=== PATIENT | female | born 1965 | race Caucasian/White ===

== ENCOUNTER 2019-08-07 11:52 | Day surgery (SDC) | payer BC ==
[~2019-08-07 11:52] MED LIST: Lactated Ringers 1,000 ML IV SCH
--- NOTE | 2019-08-07 12:19 | PCM.PREANE ---
Preanesthetic Assessment - Anesthesia/Transfusion/Family Hx Anesthesia History: Prior Anesthesia Without Reaction Family History of Anesthesia Reaction: No Transfusion History: No Prior Transfusion(s) Intubation History: Unknown - Review of Systems General: No Symptoms Pulmonary: No Symptoms Cardiovascular: No Symptoms Gastrointestinal: No Symptoms, Other (screening colonoscopy) Neurological: No Symptoms Other: Reports: None - Physical Assessment Vital Signs: Last Vital Signs Temp 36.5 C 08/07/19 12:00 Pulse 92 08/07/19 12:00 Resp 16 08/07/19 12:00 BP 125/85 08/07/19 12:00 Pulse Ox 95 08/07/19 12:00 Height: 5 ft 9 in Weight: 112.945 kg ASA Class: 3 Mental Status: Alert & Oriented x3 Airway Class: Mallampati = 2 Dentition: Reports: Normal Dentition Thyro-Mental Finger Breadths: 3 Mouth Opening Finger Breadths: 2 (small mouth) ROM/Head Extension: Full Lungs: Clear to Auscultation, Normal Respiratory Effort Cardiovascular: Regular Rate, Regular Rhythm - Allergies Allergies/Adverse Reactions: Allergies Allergy/AdvReac Type Severity Reaction Status Date / Time No Known Allergies Allergy Verified 08/02/19 08:10 - Blood Blood Available: No - Anesthesia Plan Pre-Op Medication Ordered: None - Acknowledgements Anesthesia Type Planned: MAC Pt an Appropriate Candidate for the Planned Anesthesia: Yes Alternatives and Risks of Anesthesia Discussed w Pt/Guardian: Yes Pt/Guardian Understands and Agrees with Anesthesia Plan: Yes PreAnesthesia Questionnaire HEENT History: Reports: Retinal Detachment Other HEENT History: contact in left eye, 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 Symptom is hearing loss - left ear.) Psychiatric History: Reports: None Endocrine/Metabolic History: Reports: Hypothyroidism, Obesity/BMI 30+, Other ( See Below) Other Endocrine/Metabolic History: "prediabetic" Hematologic History: Reports: None Immunologic History: Reports: None Oncologic (Cancer) History: Reports: None Dermatologic History: Reports: None - Past Surgical History Head Surgeries/Procedures: Reports: None HEENT Surgical History: Reports: Cataract Surgery, Naso-Sinus Surgery, Other ( See Below) Other HEENT Surgeries/Procedures: spinal blood patch due to intracranial hypotention, surgery for detached retina Cardiovascular Surgical History: Reports: None Respiratory Surgical History: Reports: None GI Surgical History: Reports: None Female Surgical History: Reports: Other (See Below) Other Female Surgeries/Procedures: repair of perineal tear after delivery Endocrine Surgical History: Reports: None Neurological Surgical History: Reports: Other (See Below) Other Neurological Surgeries/Procedures: spinal blood patch for intracranial hypotention Musculoskeletal Surgical History: Reports: None Oncologic Surgical History: Reports: None Dermatological Surgical History: Reports: None - SUBSTANCE USE Smoking Status *Q: Never Smoker Recreational Drug Use History: No - HOME MEDS Home Medications: Home Meds Cholecalciferol (Vitamin D3) [Vitamin D3] 25 mcg PO DAILY 08/02/19 [History] Fish Oil/[place]-3 Fatty Acids [Fish Oil 1,000 MG] 1,000 mg PO DAILY 08/02/19 [ History] Levothyroxine 150 mg PO DAILY 08/02/19 [History] Losartan Potassium 100 mg PO BEDTIME 08/02/19 [History] Multivit/Folic Acid/Vit K1 [One-A-Day Women's 50 Plus Tab] 1 tab PO DAILY [History] metFORMIN HCl [Metformin HCl ER] 500 mg PO ACDINNER 08/02/19 [History] - CURRENT (IN HOUSE) MEDS Current Meds: Current Medications Lactated Ringer's (Ringers, Lactated) 1,000 mls @ 125 mls/hr IV ASDIRECTED [facility]
[2019-08-07] MEDS ORDERED: Propofol 200 MG/20 ML SDV ONE ×2 (12:36→13:43)
[2019-08-07] MEDS ORDERED: Midazolam 1 MG/ML 2 ML SDV ONE (12:36)
--- NOTE | 2019-08-07 14:05 | PCM.OPNOTE ---
- General Post-Op/Procedure Note Date of Surgery/Procedure: 08/07/19 Operative Procedure(s): Colonoscopy with snare, ascending colon polypectomy and cold sigmoid colon polypectomy Pre Op Diagnosis: Desire for colorectal cancer screening. Post-Op Diagnosis: Ascending colon and sigmoid polyps. Sigmoid diverticulosis. Anesthesia Technique: MAC (ASA II) Primary Surgeon: Asher Contreras Condition: Good Free Text/Narrative:: DICTATION [id number] CPT CODE 60607/[id number]
[2019-08-07] MEDS ORDERED: Lactated Ringers 1,000 ML IV SCH (14:15)
--- NOTE | 2019-08-07 14:19 | PCM.POSTAN ---
POST ANESTHESIA ASSESSMENT - MENTAL STATUS Mental Status: Alert, Oriented - VITAL SIGNS Vital Signs: Last Vital Signs Temp 36.4 C 08/07/19 14:05 Pulse 79 08/07/19 14:15 Resp 10 L 08/07/19 14:15 BP 118/58 L 08/07/19 14:15 Pulse Ox 99 08/07/19 14:15 - RESPIRATORY Respiratory Status: Respiratory Rate WNL, Airway Patent, O2 Saturation Stable - CARDIOVASCULAR CV Status: Pulse Rate WNL, Blood Pressure Stable - GASTROINTESTINAL GI Status: No Symptoms - PAIN Pain Score: 0 - POST OP HYDRATION Hydration Status: Adequate & Stable - OBSERVATIONS Free Text/Narrative:: No anesthesia problems
--- NOTE | 2019-08-07 14:36 | PCM48HPAN ---
Post Anesthesia Note - EVALUATION WITHIN 48HRS OF ANESTHETIC Vital Signs in Normal Range: Yes Patient Participated in Evaluation: Yes Respiratory Function Stable: Yes Airway Patent: Yes Cardiovascular Function Stable: Yes Hydration Status Stable: Yes Pain Control Satisfactory: Yes Nausea and Vomiting Control Satisfactory: Yes Mental Status Recovered: Yes Vital Signs: Last Vital Signs Temp 36.2 C 08/07/19 14:20 Pulse 77 08/07/19 14:20 Resp 14 08/07/19 14:20 BP 122/72 08/07/19 14:20 Pulse Ox 98 08/07/19 14:20 - COMMENTS/OBSERVATIONS Free Text/Narrative:: No anesthesia problems.
--- NOTE | 2019-08-07 17:26 | OR ---
SURGEON: Asher Contreras M.D. DATE OF PROCEDURE: 08/07/2019 OPERATION PERFORMED: Colonoscopy with snare ascending colon polypectomy and cold sigmoid colon polypectomy. PRIMARY SURGEON: Asher Contreras MD ANESTHESIA: MAC. ASA CLASSIFICATION: II. PREOPERATIVE DIAGNOSIS: Desire for colorectal cancer screening. POSTOPERATIVE DIAGNOSES: 1. Ascending colon polyp. 2. Sigmoid colon polyp. 3. Sigmoid diverticulosis. DESCRIPTION OF PROCEDURE: The patient was taken to the endoscopy room and positioned on the endoscopy table in the left lateral decubitus position. Time-out was called for appropriate identification of the patient and procedure. Monitored anesthesia care was provided. The colonoscope was inserted into the rectum and advanced with moderate difficulty to the cecum where the colonoscope was retroflexed to visualize the ascending colon from below. The colonoscope was then straightened and slowly withdrawn. The cecum was identified by internal landmarks and external pressure. One polyp was encountered in the ascending colon and this was removed with the snare electrocautery. The polyp was ensnared and then using a combination of coagulating current and cutting current the polyp was removed and retrieved. It was necessary to remove the colonoscope to recover the polyp. Once that was done and the polyp recovered, the colonoscope was reinserted to the polypectomy site and examination again carried out in an antegrade fashion. The polypectomy site was dry. The remainder of the ascending colon, hepatic flexure, transverse colon, splenic flexure, and descending colon showed no other tumors, polyps, diverticula, or angiodysplastic changes. One polyp was encountered in the sigmoid colon and removed with multiple bites of the cold biopsy forceps. The patient also demonstrated moderately severe sigmoid diverticulosis. No stricture, spasm, or bleeding was noted. The colonoscope was then withdrawn to the rectum and retroflexed to visualize the anal orifice from above. Again, no tumors or polyps were encountered and there were no acute hemorrhoidal changes. The colonoscope was then straightened, the rectum aspirated, and the colonoscope removed. The patient tolerated the procedure well and was taken to recovery room in satisfactory condition. CHRISSIE / JULIANO /[id number]
== END 2019-08-07 14:48 | disposition home or self-care (01) ==
LOC: MW.SDS 11:52
PROVIDERS: ATTEND Surgery
DX: Z12.11 Encounter for screening for malignant neoplasm of colon (principal); Z12.12 Encounter for screening for malignant neoplasm of rectum; D12.2 Benign neoplasm of ascending colon; D12.5 Benign neoplasm of sigmoid colon; K57.30 Diverticulosis of large intestine without perforation or abscess without bleeding; E03.9 Hypothyroidism, unspecified; I10 Essential (primary) hypertension; R73.09 Other abnormal glucose; E66.9 Obesity, unspecified; Z79.890 Hormone replacement therapy; Z79.899 Other long term (current) drug therapy; Z68.36 Body mass index [BMI] 36.0-36.9, adult
CPT/HCPCS: 45380; 45385; 82962; J2250; J2704; J7120; 00812

== ENCOUNTER 2020-08-31 07:30 | Emergency (ER) | payer BC ==
--- NOTE | 2020-08-31 08:18 | EDM.PDOC ---
ED HPI GENERAL MEDICAL PROBLEM - General Chief Complaint: Skin Complaint Stated Complaint: rash on arms Time Seen by Provider: 08/31/20 07:35 Source of Information: Reports: Patient History Limitations: Reports: No Limitations - History of Present Illness INITIAL COMMENTS - FREE TEXT/NARRATIVE: Patient is a 55-year-old female presents today for redness under her armpits. Patient states that she thought she may have had a yeast infection and she used a vaginocele wipe on her arm and now has some redness there with itchiness. Patient denies any rash or hives any other body parts no difficulty swallowing or breathing. Patient has no other medical complaints. 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 (see below) BUE Pain Score (Numeric/FACES): 5 - Related Data Allergies Allergy/AdvReac Type Severity Reaction Status Date / Time No Known Allergies Allergy Verified 08/31/20 07:43 Home Meds: Home Meds Cholecalciferol (Vitamin D3) [Vitamin D3] 25 mcg PO DAILY 08/02/19 [History] Fish Oil/[place]-3 Fatty Acids [Fish Oil 1,000 MG] 1,000 mg PO DAILY 08/02/19 [History] Levothyroxine 150 mg PO DAILY 08/02/19 [History] Losartan Potassium 100 mg PO BEDTIME 08/02/19 [History] Multivit/Folic Acid/Vit K1 [One-A-Day Women's 50 Plus Tab] 1 tab PO DAILY [History] metFORMIN HCl [Metformin HCl ER] 500 mg PO ACDINNER 08/02/19 [History] Past Medical History HEENT History: Reports: Retinal Detachment Other HEENT History: contact in left eye, 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, hearing aid Cardiovascular History: Reports: Hypertension Respiratory History: Reports: None Gastrointestinal History: Reports: None Genitourinary History: Reports: None 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: Musculoskeletal History: Reports: None Neurological History: Reports: None Psychiatric History: Reports: None Endocrine/Metabolic History: Reports: Hypothyroidism, Obesity/BMI 30+, Other (See Below) Other Endocrine/Metabolic History: "prediabetic" Hematologic History: Reports: None Immunologic History: Reports: None Oncologic (Cancer) History: Reports: None Dermatologic History: Reports: None - Infectious Disease History Infectious Disease History: Reports: Chicken Pox - Past Surgical History Head Surgeries/Procedures: Reports: None HEENT Surgical History: Reports: Cataract Surgery, Naso-Sinus Surgery, Other (See Below) Other HEENT Surgeries/Procedures: spinal blood patch due to intracranial hypotention, surgery for detached retina Cardiovascular Surgical History: Reports: None Respiratory Surgical History: Reports: None GI Surgical History: Reports: None Female Surgical History: Reports: Other (See Below) Other Female Surgeries/Procedures: repair of perineal tear after delivery Endocrine Surgical History: Reports: None Neurological Surgical History: Reports: Other (See Below) Other Neurological Surgeries/Procedures: spinal blood patch for intracranial hypotention Musculoskeletal Surgical History: Reports: None Oncologic Surgical History: Reports: None Dermatological Surgical History: Reports: None Social & Family History - Recreational Drug Use Recreational Drug Use: No ED ROS GENERAL - Review of Systems Review Of Systems: See Below Constitutional: Reports: No Symptoms HEENT: Reports: No Symptoms Respiratory: Reports: No Symptoms Cardiovascular: Reports: No Symptoms Endocrine: Reports: No Symptoms GI/Abdominal: Reports: No Symptoms : Reports: No Symptoms Musculoskeletal: Reports: No Symptoms Skin: Reports: Rash Neurological: Reports: No Symptoms Psychiatric: Reports: No Symptoms Hematologic/Lymphatic: Reports: No Symptoms Immunologic: Reports: No Symptoms ED EXAM, SKIN/RASH Exam: See Below Exam Limited By: No Limitations General Appearance: Alert, WD/WN, No Apparent Distress Eye Exam: Bilateral Eye: EOMI, PERRL Respiratory/Chest: No Respiratory Distress Cardiovascular: Normal Peripheral Pulses, Regular Rate, Rhythm GI/Abdominal: Normal Bowel Sounds, Soft, Non-Tender Neurological: Alert, Oriented Skin: Rash (Redness under both underarms.) Location, Skin: Axillary Course - Vital Signs Last Recorded V/S: Last Vital Signs Temp 96.7 F L 08/31/20 07:43 Pulse 91 08/31/20 07:43 Resp 18 08/31/20 07:43 BP 147/90 H 08/31/20 07:43 Pulse Ox 95 08/31/20 07:43 Departure - Departure Time of Disposition: 08:19 Disposition: Home, Self-Care 01 Condition: Good Clinical Impression: Contact dermatitis - Discharge Information *PRESCRIPTION DRUG MONITORING PROGRAM REVIEWED*: Not Applicable *COPY OF PRESCRIPTION DRUG MONITORING REPORT IN PATIENT RJ: Not Applicable Instructions: Contact Dermatitis, [id number] Referrals: Reena Chan NP [Primary Care Provider] - Additional Instructions: The following information is given to patients seen in the emergency department who are being discharged to home. This information is to outline your options for follow-up care. We provide all patients seen in our emergency department with a follow-up referral. The need for follow-up, as well as the timing and circumstances, are variable depending upon the specifics of your emergency department visit. If you don't have a primary care physician on staff, we will provide you with a referral. We always advise you to contact your personal physician following an emergency department visit to inform them of the circumstance of the visit and for follow-up with them and/or the need for any referrals to a consulting specialist. The emergency department will also refer you to a specialist when appropriate. This referral assures that you have the opportunity for follow-up care with a specialist. All of these measure are taken in an effort to provide you with optimal care, which includes your follow-up. Under all circumstances we always encourage you to contact your private physician who remains a resource for coordinating your care. When calling for follow-up care, please make the office aware that this follow-up is from your recent emergency room visit. If for any reason you are refused follow-up, please contact the [facility] Emergency Department at and asked to speak to the emergency department charge nurse. Please follow up with your primary care physician. If you do not have a primary care physician, see below: [facility] [address] [place] [id number] [facility] [address] [place] [id number] You were seen today for a rash under both your armpits was likely a contact dermatitis from the wipes use. Recommend you use Benadryl for the itchiness and we can apply topical cortisone cream for the next 3 days that can help with this redness. If you have any increased redness or spreading of pain please return t o the ED. Sepsis Event Note (ED) - Evaluation Sepsis Screening Result: No Definite Risk - Focused Exam Vital Signs: Vital Signs Temp Pulse Resp BP Pulse Ox 08/31/20 07:43 96.7 F L 91 18 147/90 H 95 - Assessment/Plan Plan: Patient is a 55-year-old female presents today for rashes under both axilla. This is likely a contact dermatitis from the Vagisil wipes that she use it is well demarcated. Patient will use Benadryl for the itchiness and will be given some topical steroids.
== END 2020-08-31 08:37 | disposition home or self-care (01) ==
LOC: MW.ED 07:30
DX: L25.9 Unspecified contact dermatitis, unspecified cause (principal); I10 Essential (primary) hypertension; E03.9 Hypothyroidism, unspecified; E66.9 Obesity, unspecified; Z68.35 Body mass index [BMI] 35.0-35.9, adult; Z79.899 Other long term (current) drug therapy
CPT/HCPCS: 99282

== ENCOUNTER 2023-03-11 17:03 | Emergency (ER) | payer BC ==
[2023-03-11] MEDS ORDERED: Sodium Chloride 0.9% 10 ML Syringe FLUSH PRN (18:06)
[2023-03-11] MEDS ORDERED: Sodium Chloride 0.9% 2.5 ML Syringe FLUSH PRN (18:06)
[2023-03-11] MEDS ORDERED: Sodium Chloride 0.9% 1,000 ML IV STA (18:07)
[2023-03-11] MEDS ORDERED: Meclizine 25 MG Tab PO STA (18:07)
[2023-03-11 18:28] LABS: BASOPHILS ABSOLUTE AUTO 0.02 K/uL (0.00-0.20); BASOPHILS PERCENT AUTO 0.4 % (0.0-1.0); EOSINOPHILS ABSOLUTE AUTO 0.04 K/uL (0.00-0.45); EOSINOPHILS PERCENT AUTO 0.8 % (0.0-6.0); HEMATOCRIT 43.3 % (37.0-47.0); HEMOGLOBIN 14.9 g/dL (12.0-16.0); IMMATURE GRAN ABSOLUTE AUTO 0.02 K/uL (0.00-0.05); IMMATURE GRAN PERCENT AUTO 0.4 % (0.0-0.4); LYMPHOCYTES ABSOLUTE AUTO 1.22 K/uL (1.00-4.80); LYMPHOCYTES PERCENT AUTO 25.4 % (24.0-44.0); MEAN CORPUSCULAR HEMOGLOBIN 32.5 pg (28.0-32.0); MEAN CORPUSCULAR HGB CONC 34.4 g/dL (32.0-36.0); MEAN CORPUSCULAR VOLUME 94.3 fL (83.0-99.0); MEAN PLATELET VOLUME 8.7 fL (9.4-12.3); MONOCYTES ABSOLUTE AUTO 0.28 K/uL (0.00-0.80); MONOCYTES PERCENT AUTO 5.8 % (0.0-8.0); NEUTROPHILS ABSOLUTE AUTO 3.23 K/uL (1.80-7.70); NEUTROPHILS PERCENT AUTO 67.2 % (41.0-71.0); PLATELET COUNT,PLT 232 K/uL (150-400); RED BLOOD CELL COUNT 4.59 M/uL (4.10-5.30); WHITE BLOOD CELL COUNT,WBC 4.81 K/uL (3.9-11.3)
[2023-03-11 19:08] LABS: CORONAVIRUS COVID-19 NAA NEGATIVE (NEGATIVE); INFLUENZA A NAA NEGATIVE (NEGATIVE); INFLUENZA B NAA NEGATIVE (NEGATIVE); RESPIRATORY SYNCYTIAL VIR NAA NEGATIVE (NEGATIVE)
[2023-03-11 19:37] LABS: A/G RATIO 1.3 (0.9-1.6); ALBUMIN 4.1 g/dL (3.4-5.0); BILIRUBIN TOTAL 0.5 mg/dL (0.2-1.0); CALCIUM 9.1 mg/dL (8.5-10.1); CARBON DIOXIDE,CO2 27.1 mmol/L (21.0-32.0); CREATININE 0.7 mg/dL (0.6-1.0); EST CRCL DRUG DOSING (CG) 92.67 mL/min; PROTEIN TOTAL,TP 7.3 g/dL (6.4-8.2)
[2023-03-11 20:07] LABS: APPEARANCE,URINE CLOUDY; BILIRUBIN,URINE NEGATIVE (NEGATIVE); COLOR,URINE YELLOW; GLUCOSE,URINE NEGATIVE (NEGATIVE); KETONES,URINE NEGATIVE (NEGATIVE); LEUKOCYTE ESTERASE,URINE LARGE (NEGATIVE); NITRITE,URINE NEGATIVE (NEGATIVE); OCCULT BLOOD,URINE TRACE-INTACT (NEGATIVE); PROTEIN,URINE NEGATIVE (NEGATIVE); UROBILINOGEN,URINE 0.2 EU/dL (<2.0)
[2023-03-11 20:14] LABS: AMORPHOUS SEDIMENT,URINE MANY (NEGATIVE); BACTERIA,URINE 4+ (NEGATIVE); EPITHELIAL CELLS,URINE MANY (NONE-FEW); WBC,URINE TO NUMEROUS TO COUNT (0-5/HPF)
[2023-03-11] MEDS ORDERED: cefTRIAXone 2 GM in Sodium Chloride 0.9% 50 ML IV STA (20:30)
== END 2023-03-11 21:30 | disposition home or self-care (01) ==
LOC: MW.ED 17:03
DX: N30.00 Acute cystitis without hematuria (principal); R42 Dizziness and giddiness; E11.9 Type 2 diabetes mellitus without complications; E03.9 Hypothyroidism, unspecified; I10 Essential (primary) hypertension; E66.9 Obesity, unspecified; Z68.35 Body mass index [BMI] 35.0-35.9, adult; Z79.899 Other long term (current) drug therapy; Z79.84 Long term (current) use of oral hypoglycemic drugs
CPT/HCPCS: 0241U; 36415; 70450; 80053; 81001; 83735; 85025; 87086; 93005; 96361; 96365; 99284; A9270; J0696; J3490; J7030; 93010; 99283